=== PATIENT | female | born 1995 | race Caucasian/White ===

== ENCOUNTER 2024-12-07 19:35 | Inpatient (IN) | payer BC, SELFPAY ==
[2024-12-07] VITALS (32 sets, daily range): BP systolic 124–160; BP diastolic 69–105; PULSE 94–125; RESP 16; TEMP 36.7–37.1; O2SAT 97–98; BMI 36.1
[2024-12-07 17:06] LABS: Hematocrit 39.6 % (33.0-51.0); Hemoglobin* 13.6 gm/dL (12.0-16.0); Mean Corpuscular HGB Conc 34 gm/dL (32-36); Mean Corpuscular Hemoglobin 29 pg (26-34); Mean Corpuscular Volume 83 fL (80-100); Platelet Count* 206 K/uL (140-440); Red Blood Count 4.77 m/uL (4.00-5.20); White Blood Count* 13.56 K/uL (4.50-11.00)
[2024-12-07 17:17] LABS: Slide Review Reflex No
[2024-12-07 17:19] LABS: Alanine Aminotransferase* 20 U/L (4-35); Aspartate Amino Transferase* 31 U/L (12-35); Blood Urea Nitrogen* 9 mg/dL (5-24); Creatinine* 0.5 mg/dL (0.5-1.5); Estimated Glomerular Filt Rate 130 ml/min
[2024-12-07 18:31] LABS: Total Protein Urine 40 mg/dL
[2024-12-07 18:41] LABS: Creatinine Urine 38.8 mg/dL; Protein Creatinine Ratio Urine 1.03 (0-0.19)
--- NOTE | 2024-12-07 19:39 | W.PM.LDBA ---
Subjective History of Present Illness Narrative: Yu is a 29 yo at 37 6/7 weeks being admitted to Labor and Delivery for induction Pre-eclampsia without SF. She called earlier this evening reporting elevated BP at home with 160/100's. She presented to triage and has had elevated BP of 140/90's with some normotensive but high blood pressures since arrival. Labs were done and were WNL with exception of p/c ratio of 1.03. Since she has continued to have intermittently elevated mild range blood pressures we discussed diagnosis of Pre-eclampsia without severe features and admission for induction of labor. She agrees with plan. She denies any headache, epigastric pain, or blurred vision but has reported feeling off today. Of note, her GBS was initially resulted as positive in clinic but then they were unable to confirm positive when they repeat GBS for sensitivities. The result was then cancelled. She was GBS + last and received penicillin in labor without any concerns. She agrees to use ampicillin in labor. We will treat her as she is GBS + and will not reswab. She is supported in labor by her , Hiram. Her full history and physical was dictated by PATRICIA Pablo on 12/04/2024. Please see this for details. Specific Issues/Plans Partner:?Hiram, Son: Telly H&P completed by Bev on 12/04/2024 Tx 10/31/2024 at 32.4 weeks from [facility] *Recollect GBS at 38 week visit - Lab had conflicting results on run specimen and microscope examination, needs sensitivities d/t allergy # Hx of Severe pre-e Baseline labs: ALT 15, AST 13, Creatinine 0.45, p/c ratio 0.13 Recommended baby ASA, taking # Hx of due to severe Pre-e IOL at 36 6/7 weeks with 1st ?? # Generalized Anxiety Stable on Lexapro 10 mg # Heartburn Taking OTC pepcid # GBS+, need to repeat swab 12/04: Lab reported initial swab appeared + but they could not confirm and had issues when trying to run sensitivities. Recommended repeat swab, will collect at 38 week visit or pt can assume + results instead if desired. Pt reports she used Penicillin in last labor, will plan this time as well. ?? Imaging:?? Summary of imaging including Level II or follow-ups reported here, BPP scores not necessary? COVID:?? Flu:?? Tdap:?? 32wk Mental Health:?? Pap: (Only high-risk abnormal pap in problem list)?? OB Labs, 05/06/2024 Blood type: O +, antibody screen negative.??? Hgb: 13.2??? Platelets: 266??? Rubella (02/18/2022): Immune??? Varicella: Immune? RPR: non-reactive??? HBsAg: non-reactive??? Hep C: negative? HIV: negative??? UC: negative? GC/Chlamydia: negative/negative??? Pap (10/27/2024): NIL??? Genetic screening: Wallace/Panorama Low risk? 28 week hgb: 11.9 1hr gtt: 104??? IMAGINst trimester: 03/08/2024. SIUP 11.0 by LMP, 7.3 weeks by US. Dating by US with TIFFANY 12/23/2024 Anatomy scan 06/07/2024: SIUP with anterior placenta, EFW 80%ile, unremarkable anatomy with missing views. Follow-up recommended. Others: Follow up for missing anatomy, all WNL. OB - Problem Based A/P Additional Plan (1) Encounter for induction of labor: Status: Acute (2) Pre-eclampsia: Status: Acute (3) 37 weeks gestation of : Status: Acute (4) Depressive disorder: Status: Acute (5) Generalized anxiety disorder: Status: Acute Plan ASSESSMENT:? 29 yo at 37 6/7 weeks gestation? complicated by:?Hx of severe pre, hx of due to pre-e, generalized anxiety, heartburn Labor type: Induced, not yet in labor? Category 1 FHR pattern.?? Labor complicated by: Pre-eclampsia? GBS negative? ? PLAN:? 1. Routine intrapartum cares as ordered. Reviewed IOL options including cytotec, cook, pitocin, or AROM. Elected to do cytotec overnight and will make a plan in the morning for the day. 2. Monitoring per policy, continuous? 3. Planning unmedicated . Desires water . Consent signed. Hep C negative. Candidate for analgesia of choice.?? 4. Patient encouraged to reposition and ambulate to promote physiologic labor and .? 5. GBS prophylaxis initiated for GBS positive status. Will treat with antibiotics per protocol. Pt has history of GBS and was treated with penicillin without any concerns. Agrees with ampicillin during labor. 6. Elevated BP. Monitor hourly per protocol. 7. Anticipate ? Delivery/Labor/Induction Plan Plan: induction Induction method: per misoprostol protocol OB Exam Physical Exam Vital signs: Temp Pulse Resp BP Pulse Ox 98.7 F 109 H 16 133/93 H 98 12/07/24 16:53 12/07/24 19:20 12/07/24 16:53 12/07/24 19:20 12/07/24 17:50 Narrative: Vitals Reviewed Constitutional:? Alert and oriented x3 HEENT:? Normocephalic, atraumatic Neck:? Supple Lungs:? Clear to auscultation bilaterally Heart:? Regular rate and rhythm, no murmur, rub or gallop Abdomen:? Soft, nontender, and gravid. Vertex by Navneet's, confirmed with cervical exam. Extremities:? No edema or erythema Cervix: 2 cm/40%/-3 station/vertex NST: 130 bpm/moderate variability/15x15 accelerations/no decelerations/contractions occasionally Detailed Labor and Delivery Exam Patient Gravid: Yes
[2024-12-07] MEDS: miSOPROStoL 25 MCG/0.25 TABLET VAGINAL ×2 (19:46→22:36)
[2024-12-07] MEDS: MORPHINE 10 MG/ML inj IM (22:40)
[2024-12-07] MEDS: hydrOXYzine pamoate 25 MG CAPSULE 100 MG PO (22:41)
[2024-12-08] VITALS (44 sets, daily range): BP systolic 127–179; BP diastolic 60–95; PULSE 77–108; RESP 12–18; TEMP 36.4–36.8; O2SAT 91–100
[2024-12-08] MEDS: miSOPROStoL 25 MCG/0.25 TABLET VAGINAL (02:56)
--- NOTE | 2024-12-08 07:21 | PM.OBPNL ---
Subjective Date Seen: 12/08/24 Narrative: ?Yu is coping well with labor pain/contractions. ?Hiram is with her for support, he was down getting breakfast when I saw Yu. ?She is using nothing for comfort and pain management at this time. She reports more intense contractions this morning than overnight but appears comfortable and is talking through contractions during our conversation. We discussed changing to IV Pitocin this morning, R/B/A were discussed she is agreeable to this plan. She is planning a waterbirth so will be moved to that room when it is available. ?She is aware if she develops severe range blood pressures she will not be able to deliver in the tub. Objective Exam: VSS, afebrile General Appearance:? Calm, cooperative. ?No acute distress. ? Psychiatric Exam: Alert and oriented, appropriate affect Abdomen: Gravid Ctx: ?Q 1.5-3 min apart. ?Mild ? ? FHTs: ?Baseline: 125. ? ? Variability: moderate. ?Accels: +. ? ?Decels: ?-. SVE: 360/-3 Membranes: Intact ? Vital Signs: Last Vital Signs Temp 98.2 F 12/08/24 04:49 Pulse 99 12/08/24 06:49 Resp 12 12/08/24 04:49 BP 140/88 H 12/08/24 06:49 Pulse Ox 98 12/08/24 04:48 Plan Plan: Assessment:?? at 38.0 weeks gestation?? GBS positive, lab was initially positive but sensitivities were not able to be obtained so result appears to be cancelled in system Patient is coping well at this time?? Labor type: Induced, Early labor? Category 1 FHR pattern.? complicated by: Hx of severe pre, hx of due to pre-e, generalized anxiety, heartburn Labor complicated by: Preeclampsia without severe features? Plan:?? Begin IV Pitocin per protocol when able GBS prophylaxis initiated for GBS positive status. Will treat with antibiotics per protocol. Pt has history of GBS and was treated with penicillin without any concerns. Agrees with ampicillin during labor. Antibiotic prophylaxis treatment per protocol to start with IV Pitocin start Elevated BP. Monitor hourly per protocol. Continue with routine intrapartum cares as ordered.?? Patient encouraged to move and change positions to promote physiologic labor and .?? Nonpharmacologic comfort measures per patient preference. Candidate for analgesia of choice if desired. Patient planning waterbirth Anticipate progress to NVD. ?
[2024-12-08] MEDS: OXYTOCIN 30 unit/500 ML in NS 30 UNIT/500 ML BAG IVPB (08:06)
[2024-12-08] MEDS: AMPICILLIN 2 GM in 0.9 % SODIUM CHLORIDE Mini-bag 100 ML IVPB (08:06)
[2024-12-08] MEDS: LACTATED RINGERS 1000 ML 1,000 ML 125 ML IV (08:08)
[2024-12-08] MEDS: LABETALOL HCL 5 MG/ML inj IVP (12:10)
[2024-12-08] MEDS: MAGNESIUM IV 4 GM/100 ML PIGGYBACK IVPB (12:25)
--- NOTE | 2024-12-08 12:26 | P.OBCN_ITS ---
OB - CN: HPI Date of Consult Time Seen by Provider: 12:26 Date Seen: 12/08/24 Patient: [facility] Patient Consult date: 12/08/24 Requesting Physician: Mateus Hatch CNM Primary Care Provider: Not a Local Provider Consult Narrative Reason for consult: other (Severe preeclampsia) Narrative: Yu is a 29 year old G 2 P0101 (36wk delivery: IOL for severe pre-e) at 38 and 0/7 weeks gestation that was admitted to the Center on 12/07/24 at 37 and 6/7 wks for induction of labor due to preeclampsia without severe features. Her blood pressures have primarily been 140s/80s-90s and then at approximately noon today she had a blood pressure of 179/89 and then 15 minutes later 164/91. She was started on magnesium sulfate for seizure prophylaxis. She is being treated for severe range blood pressures with IV labetalol followed by IV hydralazine per protocol. She reports some swelling in her feet but denies headaches, right upper quadrant pain and visual disturbance. She had preeclampsia in her 1st and was not surprised to hear that she would be starting on magnesium. I also ordered nifedipine ER 30 mg daily to start today as she will likely require oral antihypertensives when she is discharged. She is currently on Pitocin 8 milliunits/minute status post 3 doses of vaginal Cytotec. She had spontaneous rupture of membranes at 11:47 a.m. today, clear fluid noted. Yu reports that her contractions are uncomfortable since her water broke. GBS (+), on ampicillin for prophylaxis. History of Present Dating criteria: based on LMP care: good care Ultrasounds: normal 1st trimester US and normal mid trimester US complications: preeclampsia History History 2 Elective abortions Para 1 Spontaneous abortions Hx # Term Pregnancies Ectopic pregnancies Hx # Pregnancies 1 Multiple births Number of Living Children 1 Past Pregnancies Del. Date GA/Weeks Outcome Route wt Inf Gender Labor Lgth Anesthesia Location Provider Compli 09/04/22 36 live - 5 lb 15.24 oz Male e pidural [facility] [place] preeclampsia Delivery Date: 09/04/22 Last Updated by: Verna Powell CNM 36.6 weeks Telly; IOL for Severe Pre-E Started labor in [place], tx to [place] in Labor, then to [place] due to NICU concerns Labs GBS status: positive OB Labs: Lab Assessment Start: 12/07/24 19:22 Freq: ONCE Status: Complete Protocol: BENJY.OBGBS Activity Type Activity Date Activity User E-sign Co-sign Detail Recorded Client Recorded Date Recorded By Document 12/07/24 19:22 BRM Desktop 12/07/24 21:59 BRM 12/07/24 19:22 Lab Assessment GBS Status positive GBS Additional Criteria None Is Patient Allergic to Penicillin? Low Risk Reaction Susceptibility Studies Available? None Treatment Required OK Are Labs Available Yes Maternal Blood Type O Maternal RH Factor Positive Evaluate Maternal Rubella Immune Status Immune Hepatitis B Surface Antigen Negative Maternal HIV Status Negative Maternal Syphillis (RPR) Status Negative [facility] Medical History (Updated 12/08/24 @ 12:43 by Aditi Larios MD) delivery ?O60.10X0 - labor with delivery, unspecified trimester, not applicable or unspecified (ICD-10) (normal spontaneous vaginal delivery) ?O80 - Encounter for full-term uncomplicated delivery (ICD-10) Surgical History No pertinent past surgical history ?Z78.9 - Other specified health status (ICD-10) Social History Narrative: SOCIAL??? 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 Special Diet: Denies??? Ok with a blood transfusion: yes??? Culture or nondenominational beliefs: denies? RISK FACTORS??? Exercise Times/wk: Chasing a toddler??? Depression/Anxiety: On Lexapro for Anxiety, not seeing a therapist??? NADEEM: 0 PHQ 9: 0??? Seat Belt Use: Routinely?? Smoking: Denies past/present??? Alcohol/day: Denies while ??? Caffeine: Coffee daily??? Drug Use: Denies past/present??? MRSA: Denies?? What is your current living situation?: I presently have a place to live Problems where you live: no known problems In the past 12 months, utilities in danger of being shut off: no In past 12 months, lack of transportation kept you from medical appts, meetings, work, or getting things needed for daily living: no In the past 12 mos, have been you worried that your food would run out before you had money to buy more?: never true In the past 12 mos, the food you bought just didn't last and you didn't have money to buy more?: never true Smoking Status: Never smoker How often does anyone, including family, friends and others, physically hurt you : never How often does anyone, including family, friends and others, insult or talk down to you: never How often does anyone, including family, friends and others, threaten you with harm: never How often does anyone, including family, friends and others, scream or curse at you: never Meds Home Medications and Allergies Home Medications ?Medication ?Instructions ?Recorded ?Confirmed ?Type aspirin 81 mg tablet,delayed 81 mg PO QDAY 10/31/24 12/07/24 History release (Adult Low Dose Aspirin) escitalopram oxalate 10 mg tablet 10 mg PO QDAY 10/31/24 12/07/24 History famotidine 20 mg tablet (Pepcid) 20 mg PO QDAY 10/31/24 12/07/24 History fexofenadine 180 mg tablet 180 mg PO QDAY 10/31/24 12/07/24 History (Princess Allergy) fluticasone propionate 50 1 spray intranasal QDAY PRN 10/31/24 12/07/24 History mcg/actuation nasal spray,suspension (Flonase Allergy Relief) vits no.126-ferrous fum 1 tab PO QDAY 10/31/24 12/07/24 History 28 mg iron-folic acid 800 mcg tablet (Classic ) Allergies Allergy/AdvReac Type Severity Reaction Status Date / Time amoxicillin Allergy Intermediate Hives Verified 12/07/24 19:15 kiwi Allergy Intermediate Redness of Verified 12/07/24 19:15 Skin OB - H&P: Exam Physical Exam: Vital signs: Temp Pulse Resp BP Pulse Ox 97.6 F 82 12 142/85 H 98 12/08/24 12:02 12/08/24 12:21 12/08/24 04:49 12/08/24 12:21 12/08/24 04:48 Narrative: General: Pleasant, , well groomed woman in no acute distress. Vital signs: Included in her electronic medical record. Heart: Regular rate and rhythm without gallop, rub or murmur. Chest: Clear to auscultation bilaterally. Abdomen: Gravid, Soft, nontender and nondistended with normal bowel sounds throughout. EFM: Baseline 128 bpm. Accelerations: Present. Decelerations: Sporadic early- appearing. Variability: Moderate. Category 2. TOCO: Q2-3minutes. Extremities: No pain. +1 BLE edema to the ankle. Neurologic: 3+/2 B patellar DTR's no clonus. OB - Results Labs Labs: Short CBC 12/07/24 Range/Units 17:00 WBC 13.56 H (4.50-11.00) K/uL Hgb 13.6 (12.0-16.0) gm/dL Hct 39.6 (33.0-51.0) % Plt Count 206 (140-440) K/uL BMP 12/07/24 17:00 BUN 9 Creatinine 0.5 Liver Function 12/07/24 Range/Units 17:00 AST 31 (12-35) U/L ALT 20 (4-35) U/L OB - CN: A/P Assessment and Plan (1) Encounter for induction of labor: Status: Acute (2) Pre-eclampsia: Problem details: Severe as of 1pm on 12/08/24 by BP criteria Status: Acute Assessment and Plan: 1. Severe pre-e by BP criteria 2. Stat CBC w/o diff, BUN, Creatinine, AST, ALT then Q6hr 3. IV labetalol followed by IV hydralazine for BP control per protocol. 4. Nifedipine Er 30mg daily, start today. 5. Continue pitocin per induction protocol 6. Continue ampicillin for GBS prophylaxis. 7. Patient is considering epidural for labor analgesia. 8. Mateus Hatch CNM is managing her labor, the therapeutic riding instructor's will be managing preeclampsia and BP medications. 9. Discussed the above plan with the patient and Mateus Hatch CNM. (3) 37 weeks gestation of : Status: Acute (4) Depressive disorder: Status: Acute (5) Generalized anxiety disorder: Status: Acute
[2024-12-08] MEDS: AMPICILLIN 1 GM in 0.9 % SODIUM CHLORIDE Mini-bag 100 ML IVPB (12:31)
--- NOTE | 2024-12-08 12:31 | PM.OBPNL ---
Subjective Date Seen: 12/08/24 Narrative: ?Yu is coping well with labor pain/contractions. ?Hiram is with her for support. ?She has requested and epidural for comfort and pain management.?She has had 2 elevated BP's in the severe range which has been treated with IV medication and is currently getting started on IV Magnesium. Dr. Larios has been consulted for her blood pressures. We will plan to comanage patient at this time and she will manage her blood pressure medications. Yu had SROM of clear fluid at 1147, continues with IV Pitocin per protocol and GBS treatment was started when Pitocin was started this morning. Objective Exam: VSS, afebrile General Appearance:? Calm, cooperative. ?No acute distress. ? Psychiatric Exam: Alert and oriented, appropriate affect Abdomen: Gravid Ctx: ?Q 2-3 min apart. ? ?Moderate ? FHTs: ?Baseline: 120. ? ? Variability: moderate. ?Accels: +. ? ?Decels: ?early. SVE: deferred at this time Membranes: ?SROM at 1147 Vital Signs: Last Vital Signs Temp 97.6 F 12/08/24 12:02 Pulse 85 12/08/24 12:27 Resp 12 12/08/24 04:49 BP 162/90 H 12/08/24 12:27 Pulse Ox 98 12/08/24 04:48 Contractions Monitor mode: External Pitocin Rate (mU/min): 8 Assessment Amniotic Membrane Status: SROM Plan Plan: Assessment:?? at 38.0 weeks gestation?? GBS Positive Patient is coping well with challenges of labor.?? Labor type: Induced, Early labor? Category 1 FHR pattern.? complicated by: Hx of severe pre, hx of due to pre-e, generalized anxiety, heartburn Labor complicated by: Preeclampsia with severe features? Plan:?? IV Magnesium per protocol, labs and medications per Dr. Larios's orders, consulted Co-management for labor at this time, NDP to manage severe preeclampsia Antibiotic prophylaxis treatment per protocol Continue with routine intrapartum cares as ordered.?? Patient encouraged to move and change positions to promote physiologic labor and .?? Nonpharmacologic comfort measures per patient preference. Candidate for analgesia of choice if desired. Risks out of waterbirth for this delivery, pt aware, has requested epidural Anticipate progress to NVD. ?
[2024-12-08 12:56] LABS: Hemoglobin* 13.7 gm/dL (12.0-16.0); Mean Corpuscular HGB Conc 34 gm/dL (32-36); Mean Corpuscular Hemoglobin 28 pg (26-34); Mean Corpuscular Volume 83 fL (80-100); Platelet Count* 215 K/uL (140-440); Red Blood Count 4.84 m/uL (4.00-5.20); White Blood Count* 16.22 K/uL (4.50-11.00)
[2024-12-08 12:58] LABS: Slide Review Reflex No
[2024-12-08 13:07] LABS: Alanine Aminotransferase* 19 U/L (4-35); Aspartate Amino Transferase* 30 U/L (12-35); Blood Urea Nitrogen* 10 mg/dL (5-24); Creatinine* 0.5 mg/dL (0.5-1.5); Estimated Glomerular Filt Rate 130 ml/min
[2024-12-08] MEDS: MAGNESIUM Infusion 40 GM/1,000 ML IV.SOLN IVPB (13:08)
[2024-12-08] MEDS: LIDOCAINE 1 % PF 30 ML INJECTION (13:23)
--- NOTE | 2024-12-08 13:40 | PM.PROC ---
Procedure Note Time Seen by Provider: 13:40 Date Seen: 12/08/24 Date of procedure: 12/08/24 Will [facility] bill your pro fee for this procedure?: Yes Procedure: I was asked to see the patient for possible vacuum assisted vaginal delivery due to bradycardia the patient had a spontaneous vaginal delivery before the vacuum could be applied. I repaired the patient's/durations which included a midline laceration, 2nd degree, between the urethra and the clitoris and 2 second-degree lacerations in the vaginal canal in the midline. The vaginal lacerations appear to be in a skip-isaacs manner. A Morris catheter was placed to perform the repair of the laceration between the urethra and the clitoris. Approximately 300 mL of urine output, clear. All lacerations were injected with 1% lidocaine plain for analgesia. The midline periclitoral/periurethral laceration was repaired using 3-0 Vicryl in a running locked manner. The vaginal lacerations were repaired with 3-0 Vicryl in a running manner. Excellent hemostasis noted all 3 laceration repairs. The patient tolerated this well. Sponge, lap and instrument counts were correct x2. Please see Mateus Hatch's delivery note for complete details. Disposition: floor
--- NOTE | 2024-12-08 13:40 | W.PM.OBVAGDE ---
OB Procedure Vag Delivery Mother Details Mother Details: The patient is a 29 year-old, 2, Para 1, admitted on 12/07/24 at 37.6 weeks gestation. : 2 Para: 2 Weeks Gestation: 38.0 Admission Date: 12/07/24 Additional Details Amniotic Membrane Status: SROM Amniotic Membrane Rupture Date: 12/08/24 Amniotic Membrane Rupture Time: 11:47 Amniotic Membrane Fluid Description: Clear Analgesia/Anesthesia Type: Local (for repair) Waterbirth: No Pitcoin: Yes Intrapartal Events: Labor Induction Induction Method: per misoprostol protocol and per pitocin protocol Labor Onset: 12:40 Complete: 12:57 Pushin:58 Heart: heart tones during second stage, bradycardia, patient was able to push and deliver baby over approximately [address] Larios was at bedside for possible vacuum delivery, which was not needed. Delivery Details Delivery Date: 12/08/24 Delivery Time: 13:06 Route of delivery: Infant Gender: Female Viability: Alive; Heart Rate Present Position at Delivery: OA Delivery Details: 29?y.o?at 38.0 weeks.? Yu was admitted for induction of labor for new diagnosis of preeclampsia at 37.6 weeks. She received 3 doses of Cytotec per protocol and then was started on IV Pitocin. She was coping well with mild contractions until she had SROM of clear fluid at 1147. Her contractions then were stronger and she requested an epidural. Not long after SROM she began to have severe range blood pressures which were treated with IV medication and she was started on IV Magnesium managed by Dr. Larios. She began to feel pressure and stated she's coming, vaginal exam found her to be complete at 1257. She began pushing with the next contraction but was not sustaining the effort and made little progress. The heart rate was bradycardic so patient was directed to push more effectively with sustained effort which was effective. Dr. Larios was called to bedside for possible vacuum delivery and the patient then delivered with the next contraction. There was a loose nuchal cord that could not be reduced and a posterior hand by the face both which were preventing the delivery of the body. The cord was clamped and cut for more room to maneuver and baby then delivered easily and was handed off to nursing staff for evaluation. ? ? She became complete at 1257.??She pushed in right tilt and low fowlers positions effectively.? Spontaneous vaginal delivery at 1306 of?a viable? female infant.??Delivered in vertex OA position.??Shoulders delivered easily.? ? Shoulder dystocia: no? Nuchal cord: yes? Meconium stained?fluid: no? Water : no? ? ? 4 at 1 minute and 8 at 5 minutes.? Weight is pending. ? Placenta delivered spontaneously and?complete?at 1315 with a?3 vessel?cord.??There were 5 succenturiate lobes noted and a marginal cord. Placenta was sent to pathology due to severe preeclampsia. Bleeding controlled with fundal massage and?pitocin?for AMTSL.? ? Lacerations:? 2nd degree vaginal, and midline periurethral tear between clitoris and urethra repaired by Dr. Larios.?See her note for details.? ? ? Bleeding?post delivery?was: minimal. ?The fundus was firm to palpation.? Blood loss: 150?mL.? Blood loss measurement type: QBL? ? ? Sponge,?lap?and needles counts are correct.? Mother and infant were stable after delivery.? 1 Minute Interval Total Score: 4 5 Minute Interval Total Score: 8 Additional Details Shoulder Dystocia: No Placenta Delivery Time: 13:15 Placental Delivery Description: Spontaneous Delivery repair: Vicryl Procedure Done: Global Blood Loss: 150 Laceration: Vaginal - 2nd Degree (midline periurethral between clitoris and urethra) Blood Loss Measurement Type: QBL Bakri Used: No Sponge/Need Count Correct: Yes Cord Vessel Description: 3 Vessels Event Summary Status: Mother and were stable after delivery. Disposition: floor
[2024-12-08] MEDS: IBUPROFEN 600 MG TABLET PO ×2 (16:59→22:35)
[2024-12-08 20:15] LABS: Hemoglobin* 13.1 gm/dL (12.0-16.0); Mean Corpuscular HGB Conc 35 gm/dL (32-36); Mean Corpuscular Hemoglobin 29 pg (26-34); Mean Corpuscular Volume 83 fL (80-100); Platelet Count* 209 K/uL (140-440); Red Blood Count 4.59 m/uL (4.00-5.20); White Blood Count* 21.28 K/uL (4.50-11.00)
[2024-12-08 20:19] LABS: Slide Review Reflex No
[2024-12-08] MEDS: ACETAMINOPHEN 500 MG TABLET 1000 MG PO (20:19)
[2024-12-08] MEDS: NIFEdipine ER 30 MG TAB PO (20:19)
[2024-12-08 20:30] LABS: Alanine Aminotransferase* 20 U/L (4-35); Aspartate Amino Transferase* 31 U/L (12-35); Blood Urea Nitrogen* 10 mg/dL (5-24); Creatinine* 0.6 mg/dL (0.5-1.5); Estimated Glomerular Filt Rate 125 ml/min
[2024-12-08 20:34] LABS: Magnesium* 4.6 mg/dL (1.5-2.6)
[2024-12-08] MEDS: LACTATED RINGERS 1000 ML 1,000 ML 75 ML IV (21:04)
[2024-12-09] VITALS (10 sets, daily range): BP systolic 124–148; BP diastolic 76–92; PULSE 85–106; RESP 16–18; TEMP 36.3–36.7; O2SAT 96–98
[2024-12-09 00:26] LABS: Hematocrit 34.3 % (33.0-51.0); Hemoglobin* 11.7 gm/dL (12.0-16.0); Mean Corpuscular HGB Conc 34 gm/dL (32-36); Mean Corpuscular Hemoglobin 29 pg (26-34); Mean Corpuscular Volume 84 fL (80-100); Platelet Count* 176 K/uL (140-440); Red Blood Count 4.11 m/uL (4.00-5.20); White Blood Count* 17.12 K/uL (4.50-11.00)
[2024-12-09 00:41] LABS: Alanine Aminotransferase* 18 U/L (4-35); Aspartate Amino Transferase* 28 U/L (12-35); Blood Urea Nitrogen* 10 mg/dL (5-24); Creatinine* 0.5 mg/dL (0.5-1.5); Est. Creatinine Clearance* 167.47; Estimated Glomerular Filt Rate 130 ml/min; Slide Review Reflex No
[2024-12-09 00:44] LABS: Magnesium* 4.9 mg/dL (1.5-2.6)
[2024-12-09] MEDS: ACETAMINOPHEN 500 MG TABLET 1000 MG PO ×2 (01:29→09:08)
[2024-12-09] MEDS: SODIUM CHLORIDE 0.9 % (FLUSH) 10 ML SYRINGE IVF (01:30)
[2024-12-09] MEDS: IBUPROFEN 600 MG TABLET PO ×3 (04:41→20:51)
[2024-12-09 06:37] LABS: Hematocrit 36.4 % (33.0-51.0); Hemoglobin* 12.2 gm/dL (12.0-16.0); Mean Corpuscular HGB Conc 34 gm/dL (32-36); Mean Corpuscular Hemoglobin 28 pg (26-34); Mean Corpuscular Volume 84 fL (80-100); Platelet Count* 197 K/uL (140-440); Red Blood Count 4.36 m/uL (4.00-5.20); White Blood Count* 16.47 K/uL (4.50-11.00)
[2024-12-09 06:50] LABS: Slide Review Reflex No
[2024-12-09 06:54] LABS: Alanine Aminotransferase* 21 U/L (4-35); Aspartate Amino Transferase* 33 U/L (12-35); Blood Urea Nitrogen* 8 mg/dL (5-24); Creatinine* 0.5 mg/dL (0.5-1.5); Est. Creatinine Clearance* 167.47; Estimated Glomerular Filt Rate 130 ml/min
[2024-12-09 06:59] LABS: Magnesium* 5.3 mg/dL (1.5-2.6)
[2024-12-09] MEDS: MAGNESIUM Infusion 40 GM/1,000 ML IV.SOLN IVPB (08:45)
[2024-12-09] MEDS: NIFEdipine ER 30 MG TAB PO ×2 (08:57→20:49)
--- NOTE | 2024-12-09 09:01 | PM.OBPNVD1 ---
OB - PN:Subj Subjective Date Seen: 12/09/24 Interval history: Yu is a 20 yo G1 now P 1-1-0-2 woman who is s/p on 12/08 at 38 0/7 weeks' gestation after IOL for preeclampsia. She developed severe features during her intrapartum course and has been on magnesium for seizue prophylaxis since that time. She had at 1306 on 12/08. She gave to female . She had 2nd degree laceration and periurethral laceration. Narrative: She last received nifedipine ER 30 mg at 8 PM. Today, she has no complaints. She continues on magnesium sulfate infusion. She denies any heavy bleeding. She is without difficulty. She has some perineal soreness, but nothing severe. OB - PN: Obj Exam Physical Exam: Vital signs: Temp Pulse Resp BP Pulse Ox O2 Del Method 97.7 F 96 16 124/81 98 Room Air 12/09/24 04:46 12/09/24 07:40 12/09/24 04:46 12/09/24 07:40 12/09/24 04:46 12/09/24 04:46 She is experiencing diuresis, with more than a L urine output since midnight Narrative: BPs were mildly elevated overnight. She last received nifedipine ER 30 mg at 8 PM. General: Pleasant, no acute distress Heart: Regular rate and rhythm, no murmur or gallop Lungs: Clear to auscultation bilaterally Abdomen: Soft, nontender, fundus well below umbilicus Lower extremities: 3+ edema to mid muller bilaterally, no erythema OB - PN: Obj Data Labs Labs: Laboratory Results - last 24 hr 12/08/24 12/08/24 12/09/24 12:42 20:12 00:21 WBC 16.22 H 21.28 H 17.12 H RBC 4.84 4.59 4.11 Hgb 13.7 13.1 11.7 L Hct 40.0 38.0 34.3 MCV 83 83 84 MCH 28 29 29 MCHC 34 35 34 Plt Count 215 209 176 BUN 10 10 10 Creatinine 0.5 0.6 0.5 Estimated Creat Clear 167.47 Estimated GFR 130 125 130 Magnesium 4.6 H* 4.9 H* AST 30 31 28 ALT 19 20 18 12/09/24 06:23 WBC 16.47 H RBC 4.36 Hgb 12.2 Hct 36.4 MCV 84 MCH 28 MCHC 34 Plt Count 197 BUN 8 Creatinine 0.5 Estimated Creat Clear 167.47 Estimated GFR 130 Magnesium 5.3 H* AST 33 ALT 21 OB - PN: A/P Delivery Assessment and Plan (1) Pre-eclampsia: Problem details: Severe as of 1pm on 12/08/24 by BP criteria Status: Acute Assessment and Plan: Continue magnesium sulfate infusion until 1:00 p.m. today. Nifedipine ER 30 mg to be given this morning. After cessation of magnesium, we will follow blood pressures to determine whether she requires an evening dose as well. (2) Depressive disorder: Status: Acute (3) Generalized anxiety disorder: Status: Acute Plan day: 1
[2024-12-09] MEDS: ESCITALOPRAM 10 MG TABLET PO (09:08)
[2024-12-09] MEDS: FAMOTIDINE 20 MG TABLET PO (09:08)
[2024-12-09] MEDS: DOCUSATE SODIUM 100 MG CAPSULE PO (09:08)
[2024-12-09] MEDS: FEXOFENADINE 180 MG TABLET PO (09:14)
[2024-12-09] MEDS: LACTATED RINGERS 500 ML 500 ML 75 ML IV (11:08)
[2024-12-09 12:36] LABS: Hematocrit 36.2 % (33.0-51.0); Hemoglobin* 12.3 gm/dL (12.0-16.0); Mean Corpuscular HGB Conc 34 gm/dL (32-36); Mean Corpuscular Hemoglobin 28 pg (26-34); Mean Corpuscular Volume 83 fL (80-100); Platelet Count* 191 K/uL (140-440); Red Blood Count 4.35 m/uL (4.00-5.20); White Blood Count* 14.38 K/uL (4.50-11.00)
[2024-12-09 12:43] LABS: Slide Review Reflex No
[2024-12-09 12:47] LABS: Alanine Aminotransferase* 20 U/L (4-35); Aspartate Amino Transferase* 34 U/L (12-35); Blood Urea Nitrogen* 7 mg/dL (5-24); Creatinine* 0.4 mg/dL (0.5-1.5); Est. Creatinine Clearance* 209.34; Estimated Glomerular Filt Rate 137 ml/min
[2024-12-10 00:52] VITALS: BP 137/82; PULSE 110; RESP 18; TEMP 36.6; O2SAT 98
[2024-12-10] MEDS: IBUPROFEN 600 MG TABLET PO (04:30)
[2024-12-10 04:43] VITALS: BP 134/92; PULSE 93; RESP 16; TEMP 36.6; O2SAT 98
[2024-12-10 05:14] VITALS: BP 134/86
[2024-12-10 08:39] VITALS: BP 147/88; PULSE 99; RESP 16; TEMP 36.8; O2SAT 97
[2024-12-10 09:08] VITALS: BP 127/86
[2024-12-10] MEDS: DOCUSATE SODIUM 100 MG CAPSULE PO (09:09)
[2024-12-10] MEDS: NIFEdipine ER 30 MG TAB PO (09:09)
[2024-12-10] MEDS: FAMOTIDINE 20 MG TABLET PO (09:09)
[2024-12-10] MEDS: FEXOFENADINE 180 MG TABLET PO (09:10)
[2024-12-10] MEDS: ESCITALOPRAM 10 MG TABLET PO (09:10)
--- NOTE | 2024-12-10 11:02 | PM.OBDSVD1 ---
DS: Providers Provider Time Seen by Provider: 11:02 Date Seen: 12/10/24 Date of admission: 12/07/24 19:35 Primary care physician: Not a Local Provider Admitting Clinician: Verna Powell CNM Attending Physician on discharge: Verna Powell CNM Date of Discharge: 12/10/24 DS: Diagnosis Discharge Diagnosis (1) Pre-eclampsia: Status: Acute Problem details: Severe as of 1pm on 12/08/24 by BP criteria Exam Narrative: Exam Narrative: Physical exam: General: No acute distress Psych: Alert and oriented x4, full affect HEENT: Normocephalic, atraumatic Heart: Regular rate and rhythm, no murmur rub or gallop Lungs: Clear to auscultation bilaterally Abdomen: Normoactive bowel sounds, soft, no tenderness, rebound, or guarding. Uterine fundus 2 cm below umbilicus. Skin: No lesions or rashes Lower extremities: No edema or erythema Pelvic exam: Deferred Const: Vital Signs, click to edit/add: Vital Signs - 24 hr 12/09/24 11:34 12/09/24 15:25 12/09/24 15:40 Temperature 98.1 F Pulse Rate [Pulse Oximeter] 106 H Respiratory Rate 18 Blood Pressure [Le ft Arm] 126/76 140/83 H 147/92 H Pulse Oximetry 98 Oxygen Delivery Me thod Room Air 12/09/24 20:38 12/10/24 00:52 12/10/24 04:43 Temperature 97.9 F 97.9 F 97.8 F Pulse Rate [Pulse Oximeter] 96 110 H 93 Respiratory Rate 18 18 16 Blood Pressure [Le ft Arm] 137/87 137/82 134/92 H Pulse Oximetry 97 98 98 Oxygen Delivery Me thod Room Air Room Air Room Air 12/10/24 05:14 12/10/24 08:39 12/10/24 09:08 Temperature 98.2 F Pulse Rate [Pulse Oximeter] 99 Respiratory Rate 16 Blood Pressure [Le ft Arm] 134/86 147/88 H 127/86 Pulse Oximetry 97 Oxygen Delivery Me thod Room Air OB - DS: Summary Hospital Course Hospital Course: The patient is a 29 year old G2, now P2 who was admitted to the Center on 12/07/24 for IOL at 38 weeks due to pre-eclampsia. She had an uncomplicated vaginal delivery. She delivered a viable female . She developed severe features during her intrapartum course and received magnesium sulfate for 24 hours . the patient has done well. Minimal lochia. Currently on nifedipine knee ER 30 mg q.d. will continue on this upon discharge. Recommend follow-up 1 week after discharge to check on her BP in addition to a 2 week in 6 weeks for visits. Reviewed alarm symptoms with patients. Strict return precautions given. [place] Gender: Female Time Spent with Patient Time attestation: Total time spent providing and/or coordinating discharge services: Discharge Plan Discharge Disposition: Home, Self-Care Date of Admission: 12/07/24 19:35 Primary Care Provider: Provider,Not a Local Condition: Stable Anticipated Discharge Date/Time: 12/10/24 11:08 Discharge Medications: New nifedipine 30 mg Tablet Extended Release 30 mg PO BID 30 Days Qty: 60 0RF acetaminophen 500 mg Tablet 1,000 mg PO Q6H PRNQty: 30 0RF Dermoplast (with menthol) 20-0.5 % Aerosol 1 spray topical QID PRNQty: 85 1RF ibuprofen 600 mg Tablet 600 mg PO Q6H PRN30 Days Qty: 30 0RF Continued famotidine [Pepcid] 20 mg tablet 20 mg PO QDAY escitalopram oxalate 10 mg tablet 10 mg PO QDAY fexofenadine [Princess Allergy] 180 mg tablet 180 mg PO QDAY Classic 28 mg iron- 800 mcg tablet 1 tab PO QDAY fluticasone propionate [Flonase Allergy Relief] 50 mcg/actuation spray,suspension 1 spray intranasal QDAY PRN Rx Instructions: administer into each nostril Discontinued aspirin [Adult Low Dose Aspirin] 81 mg tablet,delayed release (DR/EC) 81 mg PO QDAY Discharge Orders: Discharge Order (Routine); Ordered 12/10/24 Ordered By: Kimberli Richter Patient Education: OB Vaginal/Breast Feeding Additional Instructions: Follow up in 3-5 days for BP check, clinic will call to make this appointment. Follow up in 2 and 6 weeks, please call the clinic to make these appointments. Follow Up Appointments: Provider,Not a Local [Primary Care Provider] - Forms: Identified Info Instructions
== END 2024-12-10 12:20 | disposition home or self-care (01) | DRG 560 ==
LOC: OB OUT 19:36 → OB 19:36
PROVIDERS: Advanced Practice Midwife; Obstetrics & Gynecology; Admitting Provider Advanced Practice Midwife; Visit Provider Advanced Practice Midwife
DX: O14.14 Severe pre-eclampsia complicating childbirth (principal); Z3A.37 37 weeks gestation of pregnancy; Z37.0 Single live birth; O70.1 Second degree perineal laceration during delivery; O71.82 Other specified trauma to perineum and vulva; O43.193 Other malformation of placenta, third trimester; O69.89X0 Labor and delivery complicated by other cord complications, not applicable or unspecified; O99.824 Streptococcus B carrier state complicating childbirth; Z87.59 Personal history of other complications of pregnancy, childbirth and the puerperium; Z87.51 Personal history of pre-term labor; O99.344 Other mental disorders complicating childbirth; F41.1 Generalized anxiety disorder; F32.A Depression, unspecified; R12 Heartburn; O99.619 Diseases of the digestive system complicating pregnancy, unspecified trimester; O76 Abnormality in fetal heart rate and rhythm complicating labor and delivery; O69.81X0 Labor and delivery complicated by cord around neck, without compression, not applicable or unspecified
CPT/HCPCS: 36415; 59200; 82565; 82570; 83735; 84156; 84450; 84460; 84520; 85027; 86592; 88307; A9270; J0290; J2003; J2270; J3475; J7120

== ENCOUNTER 2025-05-23 10:33 | Outpatient (CLI) | payer BC, SELFPAY | END 2025-05-23 10:34 | disposition home or self-care (01) | PROVIDERS: Visit Provider Advanced Practice Midwife | DX: R53.83 Other fatigue (principal); Z83.49 Family history of other endocrine, nutritional and metabolic diseases | CPT/HCPCS: 84439; 84443 ==

== ENCOUNTER 2025-07-12 09:07 | Outpatient (CLI) | payer BC, SELFPAY | END 2025-07-12 09:08 | disposition home or self-care (01) | LOC: NFLDREF 07-18 02:08 | PROVIDERS: Visit Provider Advanced Practice Midwife | DX: O90.5 Postpartum thyroiditis (principal); R53.83 Other fatigue; Z83.49 Family history of other endocrine, nutritional and metabolic diseases | CPT/HCPCS: 82306; 82728; 83540; 83550; 84439; 84443 ==